=== PATIENT | female | born 1960 | race Two or more races ===

== ENCOUNTER 2023-05-20 12:57 | Outpatient (CLI) | payer OTHER | END 2023-05-20 13:00 | disposition home or self-care (01) | LOC: LAB 12:57 | PROVIDERS: ATTEND Orthopaedic Surgery | DX: E56.1 Deficiency of vitamin K (principal); E83.42 Hypomagnesemia; M85.9 Disorder of bone density and structure, unspecified ==

== ENCOUNTER 2023-06-01 14:08 | Outpatient (CLI) | payer OTHER | END 2023-06-01 14:19 | disposition home or self-care (01) | LOC: RAD 14:08 | PROVIDERS: ATTEND Orthopaedic Surgery | DX: M25.521 Pain in right elbow (principal) ==